=== PATIENT | male | born 1980 | race African-American/Black ===

== ENCOUNTER 2016-09-18 23:16 | Emergency (ER) | payer OTHER | END 2016-09-19 01:20 | disposition home or self-care (01) | LOC: CFTX 23:16 → CED 23:16 → CFTX 23:54 | DX: S61.213A Laceration without foreign body of left middle finger without damage to nail, initial encounter (principal); Z23 Encounter for immunization; W26.0XXA Contact with knife, initial encounter; Y92.009 Unspecified place in unspecified non-institutional (private) residence as the place of occurrence of the external cause | CPT/HCPCS: 12001; 90471; 90715; 99283 ==

== ENCOUNTER 2016-09-30 06:02 | Emergency (ER) | payer OTHER | END 2016-09-30 06:29 | disposition home or self-care (01) | LOC: CED 06:02 | DX: S61.213D Laceration without foreign body of left middle finger without damage to nail, subsequent encounter (principal) | CPT/HCPCS: 99281 ==